=== PATIENT | female | born 1990 | race African-American/Black ===

== ENCOUNTER → 2022-10-13 | Day surgery (SDC) | payer MEDICARE, OTHER ==
[~2022-10-13] MED LIST: Acetaminophen 500 MG TAB ONE; Iron Sucrose Complex 500 MG in Sodium Chloride 0.9% 250 ML 250 ML IVPB SCH
== END ==
LOC: CSHSDC 09:50
PROVIDERS: ATTEND Obstetrics & Gynecology
DX: O99.019 Anemia complicating pregnancy, unspecified trimester (principal); D64.9 Anemia, unspecified; Z3A.00 Weeks of gestation of pregnancy not specified
CPT/HCPCS: J1756; J7050

== ENCOUNTER 2022-10-29 09:38 | Day surgery (SDC) | payer MEDICARE, OTHER | END 2022-10-29 12:00 | disposition home health service (06) | LOC: CSHLD/OP 09:38 | PROVIDERS: ATTEND Obstetrics & Gynecology | DX: O16.3 Unspecified maternal hypertension, third trimester (principal); Z3A.35 35 weeks gestation of pregnancy; Z36.85 Encounter for antenatal screening for Streptococcus B | CPT/HCPCS: 87081; 99282 ==

== ENCOUNTER 2022-11-09 05:24 | Inpatient (IN) | payer MEDICARE, MEDICAID ==
[2022-11-09] MEDS ORDERED: Lactated Ringer's 1,000 ML IV SCH (06:04)
[2022-11-09] MEDS ORDERED: Famotidine/PF 20 mg/2ml Vial SLOW IVP PRN (06:04)
[2022-11-09] MEDS ORDERED: Clindamycin/D5W 900 MG in Premix Bag 1 BAG IVPB SCH (06:04)
[2022-11-09] MEDS ORDERED: Ondansetron PF 4 MG/2 ML Vial IVP PRN ×3 (06:04→11:35)
[2022-11-09] MEDS ORDERED: Bicitra 30 ML UDCUP PO PRN (06:04)
[2022-11-09] MEDS ORDERED: hydrALAZINE 20 MG/ML VIAL SLOW IVP PRN ×2 (06:04→11:35)
[2022-11-09] MEDS ORDERED: Promethazine HCl 25 MG/ML VIAL IM PRN ×2 (06:04→08:50)
[2022-11-09] MEDS ORDERED: Gentamicin Sulfate 120 MG in Premix Bag 1 BAG IVPB SCH (06:15)
[2022-11-09 06:35] LABS: Mean Corpuscular HGB CONC 32.5 g/dL (32.0-36.0); Mean Corpuscular Hemoglobin 22.3 pg (27.0-33.0); Mean Corpuscular Volume 68.7 fl (81.6-98.3); Mean Platelet Volume 8.3 fl (7.4-10.4); Platelet Count 454 10x3/uL (150-450); RBC Distribution Width 23.2 % (11.5-14.5); Red Blood Cell (RBC) Count 4.03 10x6/uL (3.90-5.03); White Blood Cell (WBC) Count 10.5 10x3/uL (3.5-10.5)
[2022-11-09 07:06] LABS: HBSAg Index 0.14 S/CO (0-0.99); Hep B Surf Ag Non-Reactive S/CO (NonReactive)
[2022-11-09 07:07] LABS: Syphilis Antibody Nonreactive (Nonreactive); Syphilis Antibody Index 0.05 S/CO (<1.00 Non-Reactive)
[2022-11-09] MEDS ORDERED: Oxytocin 10 UNITS/ML VIAL ONE ×2 (07:07→08:14)
[2022-11-09] MEDS ORDERED: Fentanyl 100 MCG/2 ML VIAL ONE (07:07)
[2022-11-09] MEDS ORDERED: Ondansetron PF 4 MG/2 ML Vial ONE (07:07)
[2022-11-09] MEDS ORDERED: Phenylephrine 40 MG/NS 250 ML 0 ML ONE (07:07)
[2022-11-09] MEDS ORDERED: Morphine PF 10 MG/10 ML VIAL ONE (07:07)
[2022-11-09] MEDS ORDERED: PHENYLEPHRINE-NS 100 MCG/ML 10 ML SYRINGE ONE (07:08)
[2022-11-09] MEDS ORDERED: ePHEDrine Sulfate 50 MG/10 ML VIAL ONE (07:08)
[2022-11-09] MEDS ORDERED: Metoclopramide HCl 10 MG/2 ML VIAL ONE (07:27)
[2022-11-09] MEDS ORDERED: Phenylephrine 40 MG/NS 250 ML 250 ML ONE (07:29)
[2022-11-09 07:31] LABS: SARS-CoV-2 NAA Rapid Test Not Detected (NotDetected)
[2022-11-09] MEDS ORDERED: Midazolam HCl 2 mg/2 ml Vial ONE (08:22)
[2022-11-09] MEDS ORDERED: Naloxone HCl 0.4 mg/ml Vial IV PRN (08:50)
[2022-11-09] MEDS ORDERED: Naloxone HCl 0.4 mg/ml Vial IVP PRN ×2 (08:50)
[2022-11-09] MEDS ORDERED: L&D-Morphine 4 MG/ML VIAL SLOW IVP PRN (08:50)
[2022-11-09] MEDS ORDERED: Promethazine HCl 25 MG SUPP PR PRN (08:50)
[2022-11-09] MEDS ORDERED: Moisturizing Cream (Eucerin) 113 GM JAR TOP PRN (08:50)
[2022-11-09] MEDS ORDERED: diphenhydrAMINE 50 MG/ML VIAL IVP PRN (08:50)
[2022-11-09] MEDS ORDERED: Meperidine HCl/PF 25 MG/ML VIAL SLOW IVP PRN (08:50)
[2022-11-09] MEDS ORDERED: Ondansetron HCl/PF 4 MG/2 ML Vial IVP PRN (08:50)
[2022-11-09] MEDS ORDERED: Fentanyl 100 MCG/2 ML VIAL SLOW IVP PRN (08:50)
[2022-11-09] MEDS ORDERED: Ketorolac Tromethamine 30 MG/ML VIAL IVP SCH (09:00)
[2022-11-09] MEDS ORDERED: Communication Order-Pharmacy FS SCH (09:00)
[2022-11-09] MEDS: Ketorolac Tromethamine 30 MG/ML VIAL IVP PRN ×2 (10:06→20:35)
[2022-11-09] MEDS ORDERED: Labetalol HCl 200 MG TAB PO SCH (11:35)
[2022-11-09] MEDS ORDERED: Boostrix 0.5 ML (Tdap) VIAL (>/=7 yrs of age) IM ONE (11:35)
[2022-11-09] MEDS ORDERED: Bisacodyl 10 MG SUPP PR PRN (11:35)
[2022-11-09] MEDS ORDERED: Simethicone Chewable 80 MG TAB PO PRN (11:35)
[2022-11-09] MEDS ORDERED: Lanolin Ointment 7 GM TUBE TOP PRN (11:35)
[2022-11-09] MEDS: Ferrous Sulfate 325 MG TAB PO SCH (13:47)
[2022-11-09] MEDS: Docusate 100 MG CAP PO SCH (13:47)
[2022-11-09] MEDS: Clindamycin/D5W 900 MG in Premix Bag 1 BAG IVPB SCH ×2 (13:54→22:16)
[2022-11-09] MEDS: diphenhydrAMINE 25 MG CAP PO PRN (17:46)
[2022-11-09] MEDS: metFORMIN 500 MG TAB PO SCH (17:46)
[2022-11-09] MEDS: Labetalol HCl 200 MG TAB PO SCH (20:34)
[2022-11-10] MEDS: Ferrous Sulfate 325 MG TAB PO SCH ×3 (01:32→21:11)
[2022-11-10] MEDS: Docusate 100 MG CAP PO SCH ×2 (01:32→09:13)
[2022-11-10] MEDS: Ketorolac Tromethamine 30 MG/ML VIAL IVP PRN ×3 (03:42→20:25)
[2022-11-10 04:29] LABS: Hemoglobin 7.1 g/dL (12.0-15.5); Mean Corpuscular HGB CONC 32.3 g/dL (32.0-36.0); Mean Corpuscular Hemoglobin 22.5 pg (27.0-33.0); Mean Corpuscular Volume 69.8 fl (81.6-98.3); Mean Platelet Volume 8.3 fl (7.4-10.4); Platelet Count 304 10x3/uL (150-450); RBC Distribution Width 23.4 % (11.5-14.5); Red Blood Cell (RBC) Count 3.15 10x6/uL (3.90-5.03); White Blood Cell (WBC) Count 9.7 10x3/uL (3.5-10.5)
[2022-11-10] MEDS: Clindamycin/D5W 900 MG in Premix Bag 1 BAG IVPB SCH (05:55)
[2022-11-10] MEDS: metFORMIN 500 MG TAB PO SCH ×2 (09:13→16:54)
[2022-11-10] MEDS: Labetalol HCl 200 MG TAB PO SCH ×2 (09:13→21:11)
[2022-11-10] MEDS ORDERED: hydrALAZINE 20 MG/ML VIAL ONE (16:45)
[2022-11-10] MEDS ORDERED: Acetaminophen 325 MG TAB PO PRN (18:29)
[2022-11-10] MEDS: diphenhydrAMINE 25 MG CAP PO PRN (18:59)
[2022-11-10] MEDS: Clindamycin 150 MG CAP PO SCH ×2 (19:04→19:17)
[2022-11-10] MEDS ORDERED: NIFEdipine 10 MG CAP PO SCH (21:00)
[2022-11-11] MEDS: Docusate 100 MG CAP PO SCH ×2 (01:19→08:51)
[2022-11-11] MEDS: Ketorolac Tromethamine 30 MG/ML VIAL IVP PRN ×2 (04:35→12:22)
[2022-11-11] MEDS ORDERED: Clindamycin 150 MG CAP PO SCH (06:00)
[2022-11-11 08:14] VITALS: BP 145/80; TEMP 98
[2022-11-11] MEDS: Ferrous Sulfate 325 MG TAB PO SCH (08:51)
[2022-11-11] MEDS: metFORMIN 500 MG TAB PO SCH (08:53)
[2022-11-11] MEDS ORDERED: Labetalol HCl 200 MG TAB PO SCH (09:00)
[2022-11-13] MEDS ORDERED: Ibuprofen 800 MG TAB PO SCH (14:00)
== END 2022-11-11 13:10 | disposition home or self-care (01) | DRG 786 ==
LOC: CSHLD 05:24 → CSHPP 10:55
PROVIDERS: ADMIT Obstetrics & Gynecology; ATTEND Obstetrics & Gynecology
PROC: 10D00Z1 Extraction of Products of Conception, Low, Open Approach (ICD-10-PCS; principal; 2022-11-09)
PROC: 0J9L0ZZ Drainage of Right Upper Leg Subcutaneous Tissue and Fascia, Open Approach (ICD-10-PCS; 2022-11-09)
DX: O34.211 Maternal care for low transverse scar from previous cesarean delivery (principal); O24.12 Pre-existing type 2 diabetes mellitus, in childbirth; O10.92 Unspecified pre-existing hypertension complicating childbirth; Z20.822 Contact with and (suspected) exposure to COVID-19; Z3A.38 38 weeks gestation of pregnancy; Z37.0 Single live birth; E11.9 Type 2 diabetes mellitus without complications; Z88.6 Allergy status to analgesic agent; Z88.0 Allergy status to penicillin; L73.2 Hidradenitis suppurativa; O99.72 Diseases of the skin and subcutaneous tissue complicating childbirth; D64.9 Anemia, unspecified; O90.81 Anemia of the puerperium
CPT/HCPCS: 36415; 36416; 51702; 85027; 86780; 86850; 86900; 86901; 87340; J0360; J1200; J1580; J1885; J2250; J2274; J2405; J2590; J2765; J3010; J3490; S0028; U0002

== ENCOUNTER 2023-01-03 13:58 | Inpatient (IN) | payer MEDICARE, MEDICAID ==
[~2023-01-03 13:58] MED LIST changes: -Acetaminophen 500 MG TAB ONE; +Iopamidol 370 76% 100 ML VIAL ONE; -Iron Sucrose Complex 500 MG in Sodium Chloride 0.9% 250 ML 250 ML IVPB SCH
[2023-01-03 14:42] LABS: #Basophils 0.1 10x3/uL (0.0-0.2); #Eosinphils 0.4 10x3/uL (0.0-0.5); #Neutrophils 11.8 10x3/uL (1.5-8.4); %Basophils 0.4 % (0.0-2.0); %Eosinophils 2.5 % (0.0-6.0); %Lymphocytes 16.3 % (18.0-47.0); %Monocytes 6.3 % (0.0-10.0); %Neutrophils 74.1 % (40.0-75.0); Hemoglobin 8.1 g/dL (12.0-15.5); Mean Corpuscular HGB CONC 32.3 g/dL (32.0-36.0); Mean Corpuscular Hemoglobin 22.7 pg (27.0-33.0); Mean Corpuscular Volume 70.3 fl (81.6-98.3); Mean Platelet Volume 8.9 fl (7.4-10.4); Platelet Count 571 10x3/uL (150-450); RBC Distribution Width 19.7 % (11.5-14.5); Red Blood Cell (RBC) Count 3.57 10x6/uL (3.90-5.03); White Blood Cell (WBC) Count 15.9 10x3/uL (3.5-10.5)
[2023-01-03] MEDS ORDERED: hydrALAZINE 20 MG/ML VIAL ONE (14:46)
[2023-01-03 14:53] LABS: ALT (SGPT) 14 U/L (8-55); AST (SGOT) 13 U/L (5-34); Albumin 3.4 g/dL (3.5-5.0); Alkaline Phosphatase 155 U/L (40-110); Anion Gap 14 mmol/L (10-20); BUN (Urea Nitrogen) 7 mg/dL (7.0-18.7); Bilirubin, Total 0.6 mg/dL (0.2-1.2); Calc. Creatinine Clearance 0 mL/min (70-130); Calcium 8.6 mg/dL (7.8-10.44); Carbon Dioxide 21 mmol/L (22-29); Chloride 107 mmol/L (98-107); Estimated GFR 108; Globulin 4.9 g/dL (2.4-3.5); Glucose 96 mg/dL (70-105); Potassium 3.5 mmol/L (3.5-5.1); Protein, Total 8.3 g/dL (6.0-8.3); Sodium 138 mmol/L (136-145)
[2023-01-03 15:08] LABS: CK (CPK) 14 U/L (29-168); Lipase 27 U/L (8-78)
[2023-01-03 15:18] LABS: CKMB 0.4 ng/mL (0-6.6)
[2023-01-03] MEDS ORDERED: Aspirin 325 MG TAB ONE (15:18)
[2023-01-03] MEDS ORDERED: Furosemide 40 MG/4 ML VIAL ONE (15:29)
[2023-01-03] MEDS ORDERED: Nitroglycerin 2% Ointment 1 INCH/1 GM Packet ONE (15:29)
[2023-01-03 18:47] LABS: Troponin I 0.037 ng/mL (< 0.028)
[2023-01-03] MEDS ORDERED: Senokot S 8.6-50 MG TAB PO PRN (19:39)
[2023-01-03] MEDS ORDERED: Calcium Carbonate 500 MG ChewTAB PO PRN (19:39)
[2023-01-03] MEDS ORDERED: Ondansetron PF 4 MG/2 ML Vial IVP PRN (19:39)
[2023-01-03] MEDS ORDERED: Ondansetron ODT 4 MG TAB PO PRN (19:39)
[2023-01-03] MEDS ORDERED: Acetaminophen 325 MG TAB PO PRN (19:39)
[2023-01-03] MEDS ORDERED: Lisinopril 10 MG TAB PO SCH (20:00)
[2023-01-03] MEDS ORDERED: VANCOMYCIN 2 GRAM/400 ML BAG IVPB SCH (20:00)
[2023-01-03 20:07] LABS: Magnesium 1.8 mg/dL (1.6-2.6)
[2023-01-03] MEDS ORDERED: cefTRIAXone\\ROCEPHIN 2 GM VIAL ONE (20:09)
[2023-01-03] MEDS ORDERED: Lisinopril 10 MG TAB ONE (20:09)
[2023-01-03 20:51] LABS: Troponin I 0.043 ng/mL (< 0.028)
[2023-01-04 03:27] LABS: #Basophils 0.1 10x3/uL (0.0-0.2); #Eosinphils 0.4 10x3/uL (0.0-0.5); #Monocytes 1.1 10x3/uL (0.0-1.1); %Basophils 0.5 % (0.0-2.0); %Eosinophils 2.9 % (0.0-6.0); %Lymphocytes 17.9 % (18.0-47.0); %Monocytes 8.6 % (0.0-10.0); %Neutrophils 69.7 % (40.0-75.0); Hemoglobin 8.1 g/dL (12.0-15.5); Mean Corpuscular HGB CONC 31.9 g/dL (32.0-36.0); Mean Corpuscular Hemoglobin 22.3 pg (27.0-33.0); Mean Corpuscular Volume 69.8 fl (81.6-98.3); Mean Platelet Volume 8.7 fl (7.4-10.4); Platelet Count 532 10x3/uL (150-450); RBC Distribution Width 19.9 % (11.5-14.5); Red Blood Cell (RBC) Count 3.64 10x6/uL (3.90-5.03); White Blood Cell (WBC) Count 12.8 10x3/uL (3.5-10.5)
[2023-01-04 03:37] LABS: Anion Gap 12 mmol/L (10-20); BUN (Urea Nitrogen) 5 mg/dL (7.0-18.7); Calc. Creatinine Clearance 0 mL/min (70-130); Calcium 8.9 mg/dL (7.8-10.44); Carbon Dioxide 22 mmol/L (22-29); Chloride 105 mmol/L (98-107); Estimated GFR 112; Glucose 88 mg/dL (70-105); Potassium 3.1 mmol/L (3.5-5.1); Sodium 136 mmol/L (136-145)
[2023-01-04] MEDS ORDERED: Magnesium 2 GM/50 ML(in water) 2 GM in Premix Bag 1 BAG IVPB SCH (04:00)
[2023-01-04] MEDS ORDERED: Magnesium 2 GM/50 ML BAG (IN WATER) ONE (04:56)
[2023-01-04] MEDS ORDERED: Potassium Chloride 20 MEQ TAB ONE ×3 (04:57→12:29)
[2023-01-04] MEDS: Potassium Chloride 20 MEQ TAB PO SCH ×2 (05:10→06:18)
[2023-01-04] MEDS ORDERED: Furosemide 40 MG/4 ML VIAL ONE (05:49)
[2023-01-04] MEDS ORDERED: Furosemide 40 MG/4 ML VIAL SLOW IVP SCH (06:00)
[2023-01-04] MEDS ORDERED: Lisinopril 10 MG TAB ONE (07:36)
[2023-01-04] MEDS ORDERED: Aspirin Chewable 81 MG TAB ONE (07:36)
[2023-01-04] MEDS ORDERED: Multivitamin W/ Minerals 1 TAB ONE (07:37)
[2023-01-04] MEDS ORDERED: Nitroglycerin 2% Ointment 1 INCH/1 GM Packet ONE (07:37)
[2023-01-04] MEDS: Nitroglycerin 2% Ointment 1 INCH/1 GM Packet TOP SCH ×4 (07:46→21:09)
[2023-01-04] MEDS: Ferrous Sulfate 325 MG TAB PO SCH (07:46)
[2023-01-04] MEDS: Lisinopril 10 MG TAB PO SCH (07:47)
[2023-01-04] MEDS: Aspirin 81 mg Enteric Coated Tablet PO SCH (07:47)
[2023-01-04] MEDS: Multivitamin W/ Minerals 1 TAB PO SCH (07:48)
[2023-01-04] MEDS ORDERED: Vancomycin 1.5 GRAM/300 ML BAG IVPB SCH (09:00)
[2023-01-04] MEDS ORDERED: Nicotine 14 MG PATCH TD PRN (10:01)
[2023-01-04 10:09] LABS: Potassium 3.4 mmol/L (3.5-5.1)
[2023-01-04 10:26] VITALS: BMI 32.1
[2023-01-04] MEDS ORDERED: Potassium Chloride 20 MEQ TAB PO SCH (10:33)
[2023-01-04 11:18] LABS: SARS-CoV-2 NAA Rapid Test Not Detected (NotDetected)
[2023-01-04] MEDS: VANCOMYCIN 1.25 GM in Sodium Chloride 0.9% 250 ML 250 ML IVPB SCH ×2 (12:36→23:54)
[2023-01-04 13:03] LABS: Iron 15 ug/dL (50-170); Magnesium 2.2 mg/dL (1.6-2.6)
[2023-01-04] MEDS: cefTRIAXone\\ROCEPHIN 2 GM in Sodium Chloride 0.9% 100 ML IVPB SCH ×2 (13:39→20:32)
[2023-01-04] MEDS ORDERED: Iron Sucrose Complex 200 MG in Sodium Chloride 0.9% 100 ML IVPB ONE (14:23)
[2023-01-04] MEDS ORDERED: Iron, Sodium Ferric Gluconate 250 MG in Sodium Chloride 0.9% 250 ML 250 ML IVPB SCH (15:00)
[2023-01-04] MEDS: Carvedilol 3.125 MG TAB PO SCH (16:15)
[2023-01-04 16:47] LABS: Hemoglobin A1c 4.9 % (4.0-6.0)
[2023-01-05] MEDS: Nitroglycerin 2% Ointment 1 INCH/1 GM Packet TOP SCH ×3 (06:00→23:52)
[2023-01-05 06:03] LABS: #Basophils 0.1 10x3/uL (0.0-0.2); #Eosinphils 0.3 10x3/uL (0.0-0.5); #Monocytes 1.1 10x3/uL (0.0-1.1); #Neutrophils 8.7 10x3/uL (1.5-8.4); %Basophils 0.5 % (0.0-2.0); %Eosinophils 2.5 % (0.0-6.0); %Lymphocytes 16.7 % (18.0-47.0); %Neutrophils 70.9 % (40.0-75.0); Hemoglobin 7.9 g/dL (12.0-15.5); Mean Corpuscular HGB CONC 31.5 g/dL (32.0-36.0); Mean Corpuscular Volume 69.9 fl (81.6-98.3); Mean Platelet Volume 9.1 fl (7.4-10.4); Platelet Count 551 10x3/uL (150-450); Red Blood Cell (RBC) Count 3.59 10x6/uL (3.90-5.03); White Blood Cell (WBC) Count 12.3 10x3/uL (3.5-10.5)
[2023-01-05 06:22] LABS: Anion Gap 15 mmol/L (10-20); BUN (Urea Nitrogen) 9 mg/dL (7.0-18.7); Calc. Creatinine Clearance 155 mL/min (70-130); Calcium 9.1 mg/dL (7.8-10.44); Carbon Dioxide 21 mmol/L (22-29); Chloride 107 mmol/L (98-107); Estimated GFR 105; Glucose 73 mg/dL (70-105); Magnesium 2.2 mg/dL (1.6-2.6); Potassium 4.3 mmol/L (3.5-5.1); Sodium 139 mmol/L (136-145)
[2023-01-05 06:27] LABS: Microcytosis MODERATE=15-30 cells (100X) (0-5/hpf)
[2023-01-05 06:28] LABS: Polychromasia SLIGHT = 2-3 cells (100X) (0-2/hpf)
[2023-01-05 06:29] LABS: Hypochromia SLIGHT = 6-15 cells (100X) (0-5/hpf); Platelet Morphology Comment Appears Increased
[2023-01-05] MEDS: Multivitamin W/ Minerals 1 TAB PO SCH (08:52)
[2023-01-05] MEDS: Ferrous Sulfate 325 MG TAB PO SCH (08:52)
[2023-01-05] MEDS: Lisinopril 10 MG TAB PO SCH (08:52)
[2023-01-05] MEDS: Aspirin 81 mg Enteric Coated Tablet PO SCH (08:52)
[2023-01-05] MEDS: Carvedilol 3.125 MG TAB PO SCH ×2 (08:52→16:43)
[2023-01-05 12:05] LABS: Vancomycin, Trough 13.5 ug/mL
[2023-01-05] MEDS: VANCOMYCIN 1.25 GM in Sodium Chloride 0.9% 250 ML 250 ML IVPB SCH ×2 (12:36→23:42)
[2023-01-05 20:17] LABS: Hemoglobin 8.5 g/dL (12.0-15.5)
[2023-01-05] MEDS: cefTRIAXone\\ROCEPHIN 2 GM in Sodium Chloride 0.9% 100 ML IVPB SCH (21:30)
[2023-01-05] MEDS: Isosorbide Dinitrate 20 MG TAB PO SCH (22:00)
[2023-01-05] MEDS: hydrALAZINE 25 MG TAB PO SCH (22:00)
[2023-01-06 05:28] LABS: #Basophils 0.1 10x3/uL (0.0-0.2); #Eosinphils 0.4 10x3/uL (0.0-0.5); #Monocytes 0.9 10x3/uL (0.0-1.1); #Neutrophils 9.4 10x3/uL (1.5-8.4); %Basophils 0.4 % (0.0-2.0); %Eosinophils 2.9 % (0.0-6.0); %Monocytes 6.8 % (0.0-10.0); %Neutrophils 70.5 % (40.0-75.0); Hemoglobin 9.1 g/dL (12.0-15.5); Mean Corpuscular HGB CONC 31.4 g/dL (32.0-36.0); Mean Corpuscular Hemoglobin 22.6 pg (27.0-33.0); Mean Corpuscular Volume 72.1 fl (81.6-98.3); Mean Platelet Volume 8.9 fl (7.4-10.4); Platelet Count 587 10x3/uL (150-450); RBC Distribution Width 21.4 % (11.5-14.5); Red Blood Cell (RBC) Count 4.02 10x6/uL (3.90-5.03); White Blood Cell (WBC) Count 13.4 10x3/uL (3.5-10.5)
[2023-01-06 05:37] LABS: Anion Gap 13 mmol/L (10-20); BUN (Urea Nitrogen) 11 mg/dL (7.0-18.7); Calc. Creatinine Clearance 149 mL/min (70-130); Calcium 9.2 mg/dL (7.8-10.44); Carbon Dioxide 24 mmol/L (22-29); Chloride 105 mmol/L (98-107); Estimated GFR 100; Glucose 81 mg/dL (70-105); Potassium 4.2 mmol/L (3.5-5.1); Sodium 138 mmol/L (136-145)
[2023-01-06] MEDS: Nitroglycerin 2% Ointment 1 INCH/1 GM Packet TOP SCH ×2 (06:30→11:52)
[2023-01-06 08:09] VITALS: TEMP 98.8
[2023-01-06] MEDS: Carvedilol 3.125 MG TAB PO SCH (09:38)
[2023-01-06] MEDS: Ferrous Sulfate 325 MG TAB PO SCH (09:38)
[2023-01-06] MEDS: Aspirin 81 mg Enteric Coated Tablet PO SCH (09:38)
[2023-01-06] MEDS: Multivitamin W/ Minerals 1 TAB PO SCH (09:38)
[2023-01-06 09:39] VITALS: BP 139/93
[2023-01-06] MEDS: Lisinopril 10 MG TAB PO SCH (09:39)
[2023-01-06] MEDS: Isosorbide Dinitrate 20 MG TAB PO SCH (09:39)
[2023-01-06] MEDS: hydrALAZINE 25 MG TAB PO SCH (09:39)
[2023-01-06] MEDS: VANCOMYCIN 1.25 GM in Sodium Chloride 0.9% 250 ML 250 ML IVPB SCH (11:52)
== END 2023-01-06 12:32 | disposition home or self-care (01) | DRG 291 ==
LOC: CSHERS 13:58 → CSHERHOLD 20:43 → CSHIMCU 01-04 10:47 → CSHERHOLD 01-04 11:13 → CSHTELE 01-04 13:54
PROVIDERS: ADMIT Family Medicine; ATTEND Internal Medicine
PROC: 30233N1 Transfusion of Nonautologous Red Blood Cells into Peripheral Vein, Percutaneous Approach (ICD-10-PCS; principal; 2023-01-05)
DX: I50.23 Acute on chronic systolic (congestive) heart failure (principal); O90.3 Peripartum cardiomyopathy; I16.0 Hypertensive urgency; R59.0 Localized enlarged lymph nodes; D64.9 Anemia, unspecified; E87.6 Hypokalemia; E83.42 Hypomagnesemia; D72.829 Elevated white blood cell count, unspecified; L73.2 Hidradenitis suppurativa; E11.9 Type 2 diabetes mellitus without complications; I10 Essential (primary) hypertension; Z68.32 Body mass index [BMI] 32.0-32.9, adult; Z20.822 Contact with and (suspected) exposure to COVID-19; F17.210 Nicotine dependence, cigarettes, uncomplicated; D75.839 Thrombocytosis, unspecified; E66.9 Obesity, unspecified; Z83.3 Family history of diabetes mellitus; Z82.49 Family history of ischemic heart disease and other diseases of the circulatory system; Z79.899 Other long term (current) drug therapy; Z88.5 Allergy status to narcotic agent; Z98.890 Other specified postprocedural states; Z88.0 Allergy status to penicillin; O94 Sequelae of complication of pregnancy, childbirth, and the puerperium; Z71.6 Tobacco abuse counseling; R79.89 Other specified abnormal findings of blood chemistry; I34.0 Nonrheumatic mitral (valve) insufficiency
CPT/HCPCS: 36415; 36416; 36430; 71045; 71275; 80048; 80053; 80202; 82550; 82553; 82728; 83036; 83540; 83690; 83735; 83880; 84443; 84484; 85025; 85379; 86850; 86900; 86901; 93005; 93010; 93306; 94760; 99281; J0360; J0696; J1650; J1940; J2916; J3475; J3490; J7050; P9016; Q9967; U0002